=== PATIENT | female | born 1950 | race Caucasian/White ===

== ENCOUNTER → 2017-02-22 | Day surgery (SDC) | payer OTHER ==
[2016-06-29 11:51] VITALS: BMI 43.0
[2017-02-15 10:09] VITALS: Ht 165.1 cm; Wt 121.8 kg
[~2017-02-22] VITALS: Ht 165.1 cm; Wt 121.8 kg
[~2017-02-22] MED LIST: CINA0.42 PO; KETAMINE HCL INJ 50 MG/ML 10 ML VIAL ONE; LEVO150T9 PO; LIDOCAINE HCL 2% 2 ML VIAL (20MG/ML) ONE; LORA1TAB13 PO; LTHSR/300 PO; MELA1TAB5 PO; METF-384 PO; METO100T14 PO; PROPOFOL IV EMULSION 10 MG/ML 20 ML VIAL IV ONE; SERT-234 PO; SERT25TA PO; SODIUM CHLORIDE 0.9% 500ML 500 ML IV ONE
[2017-02-22 13:56] VITALS: TEMP 36.5
--- NOTE | 2017-02-22 13:57 | Endo History and Physical ---
History & Physical Date of Service: Feb 22, 2017. Chief Complaint: Screening Referring Physician: Dr. Cade History of Present Illness 66 yo CF who presents for screening colonoscopy. Past Medical History Diabetes Past Surgical History Hx Cardiac Surgery: No Hx Internal Defibrillator: No Hx Pacemaker: No Hx Abdominal Surgery: Yes (TUBAL LIGATION, PARTIAL HYSTER) Hx of Implantable Prosthesis: No Hx Post-Op Nausea and Vomiting: No Hx Cancer Surgery: No Hx Thoracic Surgery: No Hx Orthopedic: Yes (LT KNEE ARTHROSCOPY X 2 AND 2 ACL REPAIR, LT TKA, LT CTR) Hx Urinary Tract Surgery: No Family History Colon CA, Polyp Social History Smoking Status: Current Some Day Smoker Hx Substance Use: No Hx Alcohol Use: Yes (~3X/MONTH) Allergies Coded Allergies: Adhesives (Verified Allergy, Unknown, BANDAIDS-TAKE SKIN OFF, 02/15/17) Amitriptyline (Verified Allergy, Unknown, Insomnia, 02/15/17) Lamotrigine (Verified Allergy, Unknown, Dementia Sx, 02/15/17) Nickel (Verified Allergy, Unknown, BLISTERED WEEPING RASH, 02/15/17) Bupropion (Verified Adverse Reaction, Unknown, CONFUSION, 02/15/17) Buspirone (Verified Adverse Reaction, Unknown, "I GOT REALLY WEIRD ON IT" , 02/15/17) Diphenhydramine (Verified Adverse Reaction, Unknown, HYPERACTIVE,INSOMNIA , 02/15/17) Erythromycin (Verified Adverse Reaction, Unknown, DIARRHEA, 02/15/17) Replaces E.E.S.-400 Paroxetine (Verified Adverse Reaction, Unknown, HYPERACTIVE, NOT FUNCTIONAL, 02/15/17) Tricyclic Antidepressants (Verified Adverse Reaction, Unknown, PROZAC- HYPERACTIVE, 02/15/17) Current Medications Reported Home Medications Medications Dose Route/Sig Max Daily Dose Days Date Category Dose Instructions Glucophage (Metformin Hcl) 1,000 Mg Tab 1,000 Mg PO BID 02/15/17 Reported NEW PRESCRIPTION - PT STATES HAS NOT STARTED YET Sensipar (Cinacalcet) 30 Mg Tab 30 Mg PO QAM 02/15/17 Reported Zoloft (Sertraline HCl) 25 Mg Tab 25 Mg PO QAM 02/15/17 Reported Zoloft (Sertraline HCl) 100 Mg Tab 100 Mg PO QAM 02/15/17 Reported Kp Melatonin (Melatonin) 3 Mg Tab 1 Tab PO HS 09/01/15 Reported Levothyroxine Sodium 150 Mcg Tab 1 Tab PO QAM 09/01/15 Reported [place] Carbonate 300 Mg Cap 4 Tab PO QPM 09/01/15 Reported Lopressor (Metoprolol Tartrate) 100 Mg Tab 100 Mg PO BID 04/16/15 Reported Lorazepam 1 Mg Tab 1 Mg PO BID PRN 05/23/12 Reported Vital Signs Weight (Kilograms): 121.82 Height (Feet): 5 Height (Inches): 5 Physical Exam General Appearance: WD/WN, no apparent distress Respiratory/Chest: Auscultation: breath sounds normal Cardiovascular: Heart Auscultation: RRR Abdomen: Bowel Sounds: normal Inspection & Palpation: soft, non-distended, no tenderness, guarding & rebound Assessment and Plan Assessment: 66 yo CF who presents for screening colonoscopy. Plan: Proceed with colonoscopy.
--- NOTE | 2017-02-22 14:50 | GI REPORT ---
Procedure Date: 02/22/2017 2:00 PM Procedure: Colonoscopy Indications: Screening for colorectal malignant neoplasm Medicines: Monitored Anesthesia Care Complications: No immediate complications. Estimated Blood Loss: Estimated blood loss: none. Procedure: Pre-Anesthesia Assessment: - Prior to the procedure, a History and Physical was performed, and patient medications and allergies were reviewed. The patient's tolerance of previous anesthesia was also reviewed. The risks and benefits of the procedure and the sedation options and risks were discussed with the patient. All questions were answered, and informed consent was obtained. Prior Anticoagulants: The patient has taken no previous anticoagulant or antiplatelet agents. ASA Grade Assessment: III - A patient with severe systemic disease. After reviewing the risks and benefits, the patient was deemed in satisfactory condition to undergo the procedure. After I obtained informed consent, the scope was passed under direct vision. Throughout the procedure, the patient's blood pressure, pulse, and oxygen saturations were monitored continuously. The scope was introduced through the anus and advanced to the cecum, identified by appendiceal orifice and ileocecal valve. The colonoscopy was performed without difficulty. The patient tolerated the procedure well. The quality of the bowel preparation was good. The ileocecal valve, appendiceal orifice, and rectum were photographed. Findings: The perianal and digital rectal examinations were normal. Two sessile polyps were found in the rectum and in the descending colon. The polyps were 3 to 5 mm in size. These polyps were removed with a cold snare. Resection and retrieval were complete. A 5 mm polyp was found in the sigmoid colon. The polyp was sessile. The polyp was removed with a hot snare. Resection and retrieval were complete. Multiple small-mouthed diverticula were found in the sigmoid colon. Non-bleeding internal hemorrhoids were found during retroflexion. The hemorrhoids were small. Impression: - Two 3 to 5 mm polyps in the rectum and in the descending colon, removed with a cold snare. Resected and retrieved. - One 5 mm polyp in the sigmoid colon, removed with a hot snare. Resected and retrieved. - Diverticulosis in the sigmoid colon. - Non-bleeding internal hemorrhoids. Recommendation: - Resume previous diet. - Continue present medications. - Repeat colonoscopy for surveillance based on pathology results. - Return to primary care physician as previously scheduled. Maicol Lorenzana, 02/22/2017 2:49:34 PM This report has been signed electronically. Note Initiated On: 02/22/2017 2:00 PM I attest to the content of the Intraoperative Record and orders documented therein, exceptions below
[2017-02-22 15:22] VITALS: BP 124/76; PULSE 54; O2SAT 93
--- NOTE | 2017-02-22 15:23 | Anesthesiology Progress Note ---
Anesthesia Post Op Note Date & Time Feb 22, 2017 at 15:23 Vital Signs Pain Intensity: 0 Vital Signs Past 12 Hours Date Time Temp Pulse Resp B/P (MAP) Pulse Ox O2 Delivery O2 Flow Rate FiO2 02/22/17 15:09 55 16 118/80 (93) 93 Room Air 02/22/17 14:52 60 16 113/60 (77) 93 Room Air 02/22/17 13:56 36.5 51 16 115/69 (84) 93 Room Air Notes Mental Status: alert / awake / arousable, participated in evaluation Pt Amnestic to Procedure: Yes Nausea / Vomiting: adequately controlled Pain: adequately controlled Airway Patency, RR, SpO2: stable & adequate BP & HR: stable & adequate Hydration State: stable & adequate Anesthetic Complications: no major complications apparent
--- NOTE | 2017-02-22 15:24 | Discharge Instructions ---
Endoscopy Patient Instructions Date / Procedure(s) Performed Feb 22, 2017. Colonoscopy Allergy Information Coded Allergies: Adhesives (Verified Allergy, Unknown, BANDAIDS-TAKE SKIN OFF, 02/22/17) Amitriptyline (Verified Allergy, Unknown, Insomnia, 02/22/17) Lamotrigine (Verified Allergy, Unknown, Dementia Sx, 02/22/17) Nickel (Verified Allergy, Unknown, BLISTERED WEEPING RASH, 02/22/17) Bupropion (Verified Adverse Reaction, Unknown, CONFUSION, 02/22/17) Buspirone (Verified Adverse Reaction, Unknown, "I GOT REALLY WEIRD ON IT" , 02/22/17) Diphenhydramine (Verified Adverse Reaction, Unknown, HYPERACTIVE,INSOMNIA , 02/22/17) Erythromycin (Verified Adverse Reaction, Unknown, DIARRHEA, 02/22/17) Replaces E.E.S.-400 Paroxetine (Verified Adverse Reaction, Unknown, HYPERACTIVE, NOT FUNCTIONAL, 02/22/17) Tricyclic Antidepressants (Verified Adverse Reaction, Unknown, PROZAC- HYPERACTIVE, 02/22/17) Discharge Date / Findings Feb 22, 2017. Colon polyps Rectal polyps Diverticulosis Internal hemorrhoids Medication Instructions OK to resume all medications today as prescribed Reported Home Medications Medications Dose Route/Sig Max Daily Dose Days Date Category Dose Instructions Glucophage (Metformin Hcl) 1,000 Mg Tab 1,000 Mg PO BID 02/15/17 Reported NEW PRESCRIPTION - PT STATES HAS NOT STARTED YET Sensipar (Cinacalcet) 30 Mg Tab 30 Mg PO QAM 02/15/17 Reported Zoloft (Sertraline HCl) 25 Mg Tab 25 Mg PO QAM 02/15/17 Reported Zoloft (Sertraline HCl) 100 Mg Tab 100 Mg PO QAM 02/15/17 Reported Kp Melatonin (Melatonin) 3 Mg Tab 1 Tab PO HS 09/01/15 Reported Levothyroxine Sodium 150 Mcg Tab 1 Tab PO QAM 09/01/15 Reported [place] Carbonate 300 Mg Cap 4 Tab PO QPM 09/01/15 Reported Lopressor (Metoprolol Tartrate) 100 Mg Tab 100 Mg PO BID 04/16/15 Reported Lorazepam 1 Mg Tab 1 Mg PO BID PRN 05/23/12 Reported Provider Instructions Activity Restrictions - No exercising or heavy lifting for 24 hours. - Do not drink alcohol the day of the procedure. - Do not drive a car or operate machinery until the day after the procedure. - Do not make any important decisions or sign important papers in 24 hours after the procedure. Following Day: - Return to full activity which may include returning to work/school. Diet Start your diet with liquids and light foods (jello, soup, juice, toast). Then eat your usual diet if not nauseated. Treatment For Common After Affects For mild abdominal pain, bloating, or excessive gas: - Rest - Eat lightly - Lie on right side Follow-Up Information Follow-up with Dr. Leanne Cade as scheduled Anesthesia Information What You Should Know You have had a procedure that required some medicine to reduce anxiety and discomfort. This treatment is called moderate sedation. After receiving the treatment, you may be sleepy, but you will be able to breathe on your own. The effects of the treatment may last for several hours. Follow these instructions along with Activity/Diet recommendations noted above: * Do NOT do anything where dizziness or clumsiness would be dangerous. * Rest quietly at home today, then you can be up and about tomorrow. * Have a responsible person stay with you the rest of today. * You may have had an I.V. today. If so, you may take the dressing off later today. Recommendations Call your doctor if: * Trouble breathing * Continuous vomiting for more than 24 hours * Temperature above 101 degrees * Severe abdominal pain or bloating * Pain not relieved by pain medicine ordered * There is increased drainage or redness from any incision * A large amount of rectal bleeding greater than 2-3 tablespoons. (If you had a polyp/s removed or have hemorrhoids, a small amount of blood - from the rectum is to be expected.) * You have any unanswered questions or concerns. IN THE EVENT OF A SERIOUS EMERGENCY, GO TO THE NEAREST EMERGENCY ROOM Your discharge instructions were prepared by provider Maicol Lorenzana. Patient Instructions Signature Page Grace Jimenez Patient (or Guardian) Signature/Date: I have read and understand the instructions given to me by my caregivers. Caregiver/RN/Doctor Signature/Date: The above-named patient and/or guardian has received patient instructions on this date. + Original Patient Signature Page (only) stays with chart. Please make copy for patient.
== END | disposition home or self-care (01) ==
LOC: C.GI 13:32
PROVIDERS: ATTEND Internal Medicine
DX: Z12.11 Encounter for screening for malignant neoplasm of colon (principal); K62.1 Rectal polyp; F31.9 Bipolar disorder, unspecified; D12.4 Benign neoplasm of descending colon; D12.5 Benign neoplasm of sigmoid colon; K57.30 Diverticulosis of large intestine without perforation or abscess without bleeding; K64.8 Other hemorrhoids; E11.9 Type 2 diabetes mellitus without complications; I10 Essential (primary) hypertension; E66.9 Obesity, unspecified; Z98.51 Tubal ligation status; Z88.9 Allergy status to unspecified drugs, medicaments and biological substances; Z90.711 Acquired absence of uterus with remaining cervical stump; Z96.652 Presence of left artificial knee joint; F17.200 Nicotine dependence, unspecified, uncomplicated; Z98.890 Other specified postprocedural states; Z80.0 Family history of malignant neoplasm of digestive organs

== ENCOUNTER → 2017-07-03 | Outpatient (CLI) | payer OTHER ==
[~2017-07-03] MED LIST changes: -KETAMINE HCL INJ 50 MG/ML 10 ML VIAL ONE; -LIDOCAINE HCL 2% 2 ML VIAL (20MG/ML) ONE; -PROPOFOL IV EMULSION 10 MG/ML 20 ML VIAL IV ONE; -SODIUM CHLORIDE 0.9% 500ML 500 ML IV ONE
--- NOTE | 2017-07-04 07:49 | MAMMOGRAPHY REPORT ---
BILATERAL DIGITAL SCREENING MAMMOGRAM TOMOSYNTHESIS WITH CAD: 07/03/2017 CLINICAL HISTORY: Routine screening. Patient has no complaints. TECHNIQUE: Breast tomosynthesis in addition to standard 2D mammography was performed. Current study was also evaluated with a Computer Aided Detection (CAD) system. COMPARISON: Comparison is made to exams dated: 06/19/2013 mammogram, 06/18/2012 mammogram, 06/13/2011 [facility] mogram, 06/15/2010 mammogram, 06/07/2010 mammogram - [facility], and 06/11/2006. BREAST COMPOSITION: The tissue of both breasts is almost entirely fatty. FINDINGS: There is a stable renu-shaped biopsy marker clip in the 6:00 anterior right breast, and stab le additional groupings of faint punctate/amorphous microcalcifications in the inferior right breast. No spiculated or irregular mass, architectural distortion or cluster of new, suspicious microcalcif ications is seen. IMPRESSION: ACR BI-RADS CATEGORY 1: NEGATIVE There is no mammographic evidence of malignancy. A 1 year screening mammogram is recommended. The pa tient will receive written notification of the results. Approximately 10% of breast cancers are not detected with mammography. A negative mammographic report should not delay biopsy if a clinically suggestive mass is present. Aura Kapoor M.D. ay/:07/03/2017 12:17:26 Sap Gatherer: Aimee GARNICA([place])(Jesse)([place]), [facility] letter sent: Normal 1/2 BI-RADS Code: ACR BI-RADS Category 1: Negative
== END | disposition home or self-care (01) ==
LOC: C.MAMM 11:04
PROVIDERS: ATTEND Family Medicine
DX: Z12.31 Encounter for screening mammogram for malignant neoplasm of breast (principal)

== ENCOUNTER → 2017-07-26 | Outpatient (CLI) | payer OTHER | END | disposition home or self-care (01) | LOC: C.MAMM 12:31 | PROVIDERS: ATTEND Internal Medicine Endocrinology, Diabetes & Metabolism | DX: E21.3 Hyperparathyroidism, unspecified (principal) ==